=== PATIENT | male | born 1950 | race Caucasian/White ===

== ENCOUNTER 2019-03-30 11:05 | Emergency (ER) | payer OTHER ==
[~2019-03-30] VITALS: Ht 172.7 cm; Wt 81.6 kg
== END 2019-03-30 13:00 | disposition home or self-care (01) ==
LOC: ER 11:05 → EDBD 11:11 → ER 13:00
DX: Z53.20 Procedure and treatment not carried out because of patient's decision for unspecified reasons (principal)